=== PATIENT | male | born 1995 | race Caucasian/White ===

== ENCOUNTER 2019-10-12 12:03 | Day surgery (SDC) | payer BC ==
[~2019-10-12 12:03] MED LIST: Lactated Ringers 1,000 ML IV SCH
--- NOTE | 2019-10-12 13:38 | PCM.PREANE ---
Preanesthetic Assessment - Anesthesia/Transfusion/Family Hx Anesthesia History: Prior Anesthesia Without Reaction Family History of Anesthesia Reaction: No Transfusion History: No Prior Transfusion(s) Intubation History: Unknown - Review of Systems General: No Symptoms Pulmonary: No Symptoms Cardiovascular: No Symptoms Gastrointestinal: No Symptoms Neurological: No Symptoms Other: Reports: None - Physical Assessment NPO Status Date: 10/11/19 NPO Status Time: 23:00 Vital Signs: Last Vital Signs Temp 36.9 C 10/12/19 12:45 Pulse 62 10/12/19 12:45 Resp 16 10/12/19 12:45 BP 128/60 10/12/19 12:45 Pulse Ox 99 10/12/19 12:45 Height: 5 ft 8 in Weight: 91.172 kg ASA Class: 2 Mental Status: Alert & Oriented x3 Airway Class: Mallampati = 2 Dentition: Reports: Normal Dentition Thyro-Mental Finger Breadths: 3 Mouth Opening Finger Breadths: 3 ROM/Head Extension: Full Lungs: Clear to Auscultation, Normal Respiratory Effort Cardiovascular: Regular Rate, Regular Rhythm - Allergies Allergies/Adverse Reactions: Allergies Allergy/AdvReac Type Severity Reaction Status Date / Time amoxicillin Allergy Hives Verified 10/09/19 07:14 Penicillins Allergy Hives Verified 10/09/19 07:14 - Blood Blood Available: No - Anesthesia Plan Pre-Op Medication Ordered: None - Acknowledgements Anesthesia Type Planned: General Anesthesia Pt an Appropriate Candidate for the Planned Anesthesia: Yes Alternatives and Risks of Anesthesia Discussed w Pt/Guardian: Yes Pt/Guardian Understands and Agrees with Anesthesia Plan: Yes PreAnesthesia Questionnaire - Past Health History Medical/Surgical History: Denies Medical/Surgical History HEENT History: Reports: None Cardiovascular History: Reports: None Respiratory History: Reports: None Gastrointestinal History: Reports: None Genitourinary History: Reports: None Musculoskeletal History: Reports: Fracture Other Musculoskeletal History: intermittent back pain, scoliosis Neurological History: Reports: Other (See Below) (essential tremor - inderal ineffective) Psychiatric History: Reports: None Endocrine/Metabolic History: Reports: Obesity/BMI 30+ Hematologic History: Reports: None Immunologic History: Reports: None Oncologic (Cancer) History: Reports: None Dermatologic History: Reports: None - Past Surgical History Head Surgeries/Procedures: Reports: None HEENT Surgical History: Reports: None Cardiovascular Surgical History: Reports: None Respiratory Surgical History: Reports: None GI Surgical History: Reports: None Male Surgical History: Reports: None Endocrine Surgical History: Reports: None Neurological Surgical History: Reports: None Musculoskeletal Surgical History: Reports: ORIF Other Musculoskeletal Surgeries/Procedures:: ORIF fx left leg Oncologic Surgical History: Reports: None Dermatological Surgical History: Reports: None - SUBSTANCE USE Smoking Status *Q: Former Smoker Tobacco Use Within Last Twelve Months: Cigarettes Recreational Drug Use History: Yes Recreational Drug Type: Reports: Marijuana/Hashish Recreational Drug Last Use: 3 days ago - HOME MEDS Home Medications: Home Meds . [No Known Home Meds] 10/11/14 [History] - CURRENT (IN HOUSE) MEDS Current Meds: Current Medications Lactated Ringer's (Ringers, Lactated) 1,000 mls @ 125 mls/hr IV ASDIRECTED [facility] Last Admin: 10/12/19 13:16 Dose: 125 mls/hr Clindamycin Phosphate 900 mg/ (Premix) 50 mls @ 50 mls/hr IV ONETIME ONE Stop: 10/12/19 14:59 Discontinued Medications Clindamycin Phosphate 900 mg/ (Sodium Chloride) 56 mls @ 100 mls/hr IV ONETIME ONE Stop: 10/12/19 14:33
[2019-10-12] MEDS ORDERED: Ondansetron 4 MG/2 ML SDV ONE (13:55)
[2019-10-12] MEDS ORDERED: fentaNYL 250 MCG/5 ML SDV ONE (13:55)
[2019-10-12] MEDS ORDERED: Propofol 200 MG/20 ML SDV ONE (13:55)
[2019-10-12] MEDS ORDERED: Midazolam 1 MG/ML 2 ML SDV ONE (13:55)
[2019-10-12] MEDS ORDERED: Lidocaine 2% 5 ML SDV ONE (13:55)
[2019-10-12] MEDS ORDERED: Clindamycin Phosphate in D5W 900 MG in Premix Bag 1 BAG IV ONE ×2 (14:00)
[2019-10-12] MEDS ORDERED: Bupivacaine 25%/EPINEPHrine/PF 0 ML ONE (14:58)
[2019-10-12] MEDS ORDERED: Bupivacaine 0.5% 30 ML SDV ONE (14:58)
[2019-10-12] MEDS ORDERED: Glycopyrrolate 0.2 MG/ML SDV ONE ×2 (15:10→17:41)
--- NOTE | 2019-10-12 16:51 | PN ---
The patient is a 24-year-old male. PLANNED PROCEDURE: Open reduction with internal fixation of 2nd metatarsal, left foot. ALLERGIES: Potential allergy to penicillin and amoxicillin. PAST MEDICAL HISTORY: Significant for essential tremor for which propranolol was prescribed in June 2019, which he has stopped taking as he thought it was ineffective. He is not on any medications at this time. He did have an EKG showing normal sinus rhythm. He was cleared for surgery by Dr. Darrius Sheets, and he also had labs. LABORATORY DATA: As follows. White blood cells 6.78, red blood cell 5.04, hemoglobin 14.2, hematocrit 43.9, platelets 174. Glucose 69, calcium 9.4, BUN 16, creatinine 1.26, sodium 141, potassium 3.8, chloride 104, CO2 content 32. The patient fractured his 2nd metatarsal, left foot, a number of months ago. Has been walking on it ever since. Agrees to be nonweightbearing status post surgical correction. The patient understands due to the age of the fracture and the resulting malunion that this could complicate the fixation. He understands the risk of malunion, risk of nonunion, risk of prolonged healing, risk of postoperative infection. He has consented in writing and wishes to proceed with surgery today. Consent was signed and witnessed by nurse and placed in the patient's chart. No guarantees have been expressed or implied and all risks and benefits have been discussed with the patient. CAROLYN BARRON /[id number]
[2019-10-12] MEDS ORDERED: 50% Dextrose in Water 50 ML Syringe IVPUSH PRN (17:35)
[2019-10-12] MEDS ORDERED: Naloxone 0.4 MG/ML Syringe IVPUSH PRN (17:35)
[2019-10-12] MEDS ORDERED: Atropine 0.1 MG/ML 10 ML Syringe IVPUSH PRN ×2 (17:35)
[2019-10-12] MEDS ORDERED: EPINEPHrine 1:10,000 1 MG/10 ML Syringe IVPUSH PRN (17:35)
[2019-10-12] MEDS ORDERED: Albuterol 0.083% 2.5 MG/3 ML Neb Soln NEB PRN (17:35)
--- NOTE | 2019-10-12 18:09 | PCM.OPNOTE ---
- General Post-Op/Procedure Note Date of Surgery/Procedure: 10/12/19 Operative Procedure(s): orif 2nd metatarsal fracture left foot Findings: consistent with dx Pre Op Diagnosis: fracture second metatarsal left foot Post-Op Diagnosis: fracture second metatarsal left foot Anesthesia Technique: General LMA Primary Surgeon: Jose Resendez Anesthesia Provider: Moe Cook Pathology: none EBL in mLs: 10 Condition: Good Free Text/Narrative:: materials: 3-0 Vicryl 4-0 Vicryl 4-0 Stratafix Moustapha 2.7 mm x 22 mm locking screw Elwood 2.7 mm x 22 mm non-locking screw Elwood 2.7 mm x 14 mm locking screw Moustapha 2.7 mm x 18 mm locking screw Moustapha slim 5 hole Y plate 30 mm length injectables: 10 ml 0.5% marcaine plain tourniquet time: 119 minutes
[2019-10-12] MEDS ORDERED: Meperidine PF 25 MG/ML Syringe IVPUSH ONE (18:17)
[2019-10-12] MEDS ORDERED: Meperidine PF 25 MG/ML Syringe ONE (18:18)
[2019-10-12] MEDS: fentaNYL 100 MCG/2 ML SDV IVPUSH PRN ×2 (18:27→18:32)
--- NOTE | 2019-10-12 18:42 | PCM.POSTAN ---
POST ANESTHESIA ASSESSMENT - MENTAL STATUS Mental Status: Alert, Oriented - VITAL SIGNS Vital Signs: Last Vital Signs Temp 36.6 C 10/12/19 17:55 Pulse 96 10/12/19 18:35 Resp 17 10/12/19 18:35 BP 124/65 10/12/19 18:35 Pulse Ox 96 10/12/19 18:35 - RESPIRATORY Respiratory Status: Respiratory Rate WNL, Airway Patent, O2 Saturation Stable - CARDIOVASCULAR CV Status: Pulse Rate WNL, Blood Pressure Stable - GASTROINTESTINAL GI Status: No Symptoms - PAIN Pain Score: 2 - POST OP HYDRATION Hydration Status: Adequate & Stable - OBSERVATIONS Free Text/Narrative:: No anesthesia problems
--- NOTE | 2019-10-12 19:15 | PCM48HPAN ---
Post Anesthesia Note - EVALUATION WITHIN 48HRS OF ANESTHETIC Vital Signs in Normal Range: Yes Patient Participated in Evaluation: Yes Respiratory Function Stable: Yes Airway Patent: Yes Cardiovascular Function Stable: Yes Hydration Status Stable: Yes Pain Control Satisfactory: Yes Nausea and Vomiting Control Satisfactory: Yes Mental Status Recovered: Yes Vital Signs: Last Vital Signs Temp 36.6 C 10/12/19 17:55 Pulse 92 10/12/19 18:40 Resp 12 10/12/19 18:40 BP 129/76 10/12/19 18:40 Pulse Ox 94 L 10/12/19 18:40 - COMMENTS/OBSERVATIONS Free Text/Narrative:: No anesthesia problems
[2019-10-12 20:22] VITALS: BP 138/73; PULSE 74
--- NOTE | 2019-10-13 00:18 | OR ---
SURGEON: Jose Resendez DPM DATE OF PROCEDURE: 10/12/2019 PROCEDURE: Open reduction with internal fixation of 2nd metatarsal fracture, left foot. PREOPERATIVE DIAGNOSIS: Fracture of 2nd metatarsal, left foot. POSTOPERATIVE DIAGNOSOS: Fracture of 2nd metatarsal, left foot. ANESTHESIA: General, LMA. PATHOLOGY: None. ESTIMATED BLOOD LOSS: 10 mL. CONDITION: Good. The patient tolerated the procedure and anesthesia well with no complications noted and prompt hyperemic response to all digits of the left foot following deflation of the tourniquet. TOURNIQUET TIME: 119 minutes. MATERIALS: 3-0 Vicryl, 4-0 Vicryl, 4-0 Stratafix, Moustapha 2.7 mm x 22 mm locking screw, Boardman 2.7 mm x 22 mm nonlocking screw, Moustapha 2.7 mm x 14 mm locking screw, Boardman 2.7 mm x 18 mm nonlocking screw. There is also a Boardman 5-hole slim Y plate, 30 mm in length. INJECTABLES: 10 mL of 0.5% Marcaine plain. JUSTIFICATION FOR PROCEDURE: The patient was diagnosed with an old 2nd metatarsal fracture, which was the cause of his pain when he presented to my office stating that he had been tender for a long time. The fracture is of unknown duration. At that time at the initial presentation, the patient stated that he could not take time off work and would continue to weight bear on the fracture even knowing that it was there and would like to proceed to surgery in the latter part of September. Several months later, we are proceeding with surgery. Patient did revisit with me prior to surgery and had a CT scan confirming the nature of the 2nd metatarsal fracture, which is transverse and at the base of the 2nd metatarsal approximately 1 cm distal to the 2nd metatarsal intermediate cuneiform joint. The patient understands that there could be complications including nonunion due to the nature of this fracture and the amount of compromise to the bone that may have occurred over such a long period of time. He also understands the risks of prolonged healing and postoperative infection. All risks and benefits have been discussed with the patient. All the patient's questions have been answered and no guarantees have been expressed or implied. The patient has given written consent and wishes to proceed to surgery today. PROCEDURE IN DETAIL: The patient was brought to the operating room, placed on the operating table in the supine position, at which time an aseptic scrub and drape were performed about the patient's left lower extremity after administration of general anesthesia. The patient did have an above-ankle tourniquet affixed to his distal leg just above the malleoli on the left lower extremity. Time-out was performed and the site of surgery and procedure being performed was verified as well as the administration of 900 mg of clindamycin by Anesthesia. Preoperative x-rays were taken and saved documenting the preoperative state and incision planning was done with a marking pen. Incision was planned over the base of the 2nd metatarsal of the left foot. Esmarch bandage exsanguination was performed followed by inflation of the tourniquet to a pressure of 250 mmHg. Incision was performed using the planned incision line and deepened down to the level of subcutaneous tissue through that level, and then with retraction, the tendinous layer was dissected and retracted away from the base of the 2nd metatarsal. The 2nd metatarsal intermediate cuneiform joint was identified and bone callus was identified over the fracture line which was not visible due to the coverage with the hypertrophic bone callus. This was removed with bone rongeur and was further smoothed with feathering technique using TPS saw and the fracture site was identified and copious amounts of normal sterile saline used to flush out the area during the procedure. Initially, micro drilling was performed with a 0.035 inch K-wire and this was done to stimulate blood flow across the fracture site, which was noted to have avascular appearance. A lobster claw was used to achieve reduction across the fracture site and a 30 mm long, 5-hole slim Y Boardman plate was selected with the Y-shaped edge of the plate on the proximal aspect of the 2nd metatarsal base proximal to the fracture line and the distal 2 holes were located distally. The middle hole was just proximal to the fracture line and judged to be too close to be used. Drilling and measuring were done on the remaining 4 holes and the proximal lateral hole was fixated with a 2.7 x 22 mm Boardman locking screw. The medial hole was fixated with the same size screw, but a nonlocking screw to increase compression. BB-Agusto that had been used for fixation was removed and the distal holes were fixated with a 14 mm locking screw in the distal-most hole and just proximal to it, an 18 mm nonlocking screw. All screw sizes were 2.7 mm diameter. Excellent position and fixation were noted to have been achieved. Postoperative x-rays were taken and saved. The area was flushed again with normal sterile saline and layered soft tissue closure was done with 3-0 Vicryl suture for the deeper tissue, 4-0 Vicryl suture for subcutaneous layer, and 4-0 Stratafix suture for the superficial skin. Steri-Strips were applied. A 10 mL of 0.5% Marcaine plain was injected about the surgical site. Betadine-soaked Xeroform gauze was applied followed by fluff gauze, Kerlix roll, stockinette, cast padding and posterior splint secured with 2 Homar bandages. The tourniquet was deflated during closure at a time of 119 minutes. There was a prompt hyperemic response to all digits of the left foot upon deflation. The patient tolerated the procedure and the anesthesia well with no complications noted and was transported to the recovery room with vital signs stable. Patient is receiving written postoperative instructions as well as verbal and will be following up with me no later than Wednesday 4 days from now. CAROLYN / BEATRICE /[id number]
--- NOTE | 2019-10-13 07:20 | CR ---
Left foot: 5 fluoroscopic spot views were obtained of the left foot centered to the tarsometatarsal junction. Study shows placement of plate and screws across fracture involving the 2nd metatarsal base. Alignment on final films appears anatomic. Fluoroscopy time given as 19.3 seconds. Impression: 1. Procedural study as noted above. Diagnostic code #2 This report was dictated in Mountain Standard Time
== END 2019-10-12 20:50 | disposition home or self-care (01) ==
LOC: MW.SDS 12:03 → MW.MS 18:43 → MW.SDS 20:50
PROVIDERS: ATTEND Podiatrist Foot & Ankle Surgery
DX: S92.322A Displaced fracture of second metatarsal bone, left foot, initial encounter for closed fracture (principal); G25.0 Essential tremor; X58.XXXA Exposure to other specified factors, initial encounter
CPT/HCPCS: J2001; J2175; J2250; J2405; J2704; J3010; J3490; J7120

== ENCOUNTER 2020-05-26 14:31 | Emergency (ER) | payer BC ==
--- NOTE | 2020-05-26 14:42 | EDM.PDOC ---
ED HPI GENERAL MEDICAL PROBLEM - General Chief Complaint: General Stated Complaint: GENITALIA ISSUE Time Seen by Provider: 05/26/20 14:33 Source of Information: Reports: Patient History Limitations: Reports: No Limitations - History of Present Illness INITIAL COMMENTS - FREE TEXT/NARRATIVE: HISTORY AND PHYSICAL: History of present illness: Patient is a 25-year-old male who presents to the emergency room with complaints of swelling to his foreskin. He reports that he has not had any sexual encounters in over 3 weeks, reports using protection. He does admit to frequent masturbation, denies using any new creams/lotions. This morning he noticed swelling and discomfort of his foreskin, he is not circumcised. Denies any lesions, penile discharge, testicular pain or swelling. Does not voice any immediate concerns for STDs. Review of systems: As per history of present illness and below otherwise all systems reviewed and negative. Past medical history: As per history of present illness and as reviewed below otherwise noncontributory. Surgical history: As per history of present illness and as reviewed below otherwise noncontributory. Social history: See social history for further information Family history: As per history of present illness and as reviewed below otherwise noncontributory. Physical exam: General: Well-developed and well-nourished 25-year-old male. Alert and oriented. Nontoxic-appearing and in no acute distress. HEENT: Atraumatic, normocephalic, pupils equal and reactive bilaterally, negative for conjunctival pallor or scleral icterus, mucous membranes moist, TMs normal bilaterally, throat clear, neck supple, nontender, trachea midline. No drooling or trismus noted. No meningeal signs. No hot potato voice noted. Lungs: Clear to auscultation, breath sounds equal bilaterally, chest nontender. Heart: S1S2, regular rate and rhythm without overt murmur Abdomen: Soft, nondistended, nontender. Negative for masses or hepatosplenom egaly. Negative for costovertebral tenderness. Pelvis: Stable nontender. Genitourinary: This was done with consent and a superintendent local at the bedside. No lesions or penile drainage noted. No testicular pain, swelling or redness. He does have some mild redness and swelling on the dorsal aspect of the penis shaft. Skin: Intact, warm, dry. No lesions or rashes noted. Extremities: Atraumatic, moves all extremities per self without difficulty or deficits, negative for cords or calf pain. Neurovascular unremarkable. Neuro: Awake, alert, oriented. Cranial nerves II through XII unremarkable. Cerebellum unremarkable. Motor and sensory unremarkable throughout. Exam nonfocal. Notes: I did have Dr. Cox look at patient's skin, he is agreeable with plan of care. UA is normal. STD pending. Follow up, medication, and supportive care measures were reviewed and discussed. Voices understanding and is agreeable to plan of care. Denies any further questions or concerns at this time. Diagnostics: UA, gonorrhea/chlamydia Therapeutics: none Prescription: Hydrocortisone cream Impression: Balanoposthitis Plan: 1. Gently wash the area with mild soap and water twice daily, get under the foreskin. Make sure you dry the area thoroughly. 2. Apply the hydrocortisone topical twice daily over the next 5-7 days. 3. We did add a Gonorrhea/Chlamydia screening, this is a send out. We will call you if this requires additional medication. 4. Please follow up with primary care provider. If your symptoms should worsen, new symptoms develop or any of the signs and symptoms we discussed should arise please return to the emergency room or call 911 (if needed). Definitive disposition and diagnosis as appropriate pending reevaluation and review of above. Onset: Today - Related Data Allergies Allergy/AdvReac Type Severity Reaction Status Date / Time amoxicillin Allergy Hives Verified 05/26/20 14:41 Penicillins Allergy Hives Verified 05/26/20 14:41 Home Meds: Home Meds Hydrocortisone [Hydrocortisone 2.5% Oint] 1 dose TOP BID 7 Days #1 tube 05/26/20 [Rx] Past Medical History - Past Health History Medical/Surgical History: Denies Medical/Surgical History HEENT History: Reports: None Cardiovascular History: Reports: None Respiratory History: Reports: None Gastrointestinal History: Reports: None Genitourinary History: Reports: None Musculoskeletal History: Reports: Fracture Other Musculoskeletal History: intermittent back pain, scoliosis Neurological History: Reports: Other (See Below) (essential tremor - inderal ineffective) Psychiatric History: Reports: None Endocrine/Metabolic History: Reports: Obesity/BMI 30+ Hematologic History: Reports: None Immunologic History: Reports: None Oncologic (Cancer) History: Reports: None Dermatologic History: Reports: None - Past Surgical History Head Surgeries/Procedures: Reports: None HEENT Surgical History: Reports: None Cardiovascular Surgical History: Reports: None Respiratory Surgical History: Reports: None GI Surgical History: Reports: None Male Surgical History: Reports: None Endocrine Surgical History: Reports: None Neurological Surgical History: Reports: None Musculoskeletal Surgical History: Reports: ORIF Other Musculoskeletal Surgeries/Procedures:: ORIF fx left leg Oncologic Surgical History: Reports: None Dermatological Surgical History: Reports: None Social & Family History - Family History Family Medical History: Noncontributory - Caffeine Use Caffeine Use: Reports: Coffee ED ROS GENERAL - Review of Systems Review Of Systems: Comprehensive ROS is negative, except as noted in HPI. ED EXAM, GENERAL - Physical Exam Exam: See Below (See dictation) Course - Vital Signs Last Recorded V/S: Last Vital Signs Temp 97.6 F 05/26/20 14:41 Pulse 88 05/26/20 14:41 Resp 17 05/26/20 14:41 BP 136/77 05/26/20 14:41 Pulse Ox 97 05/26/20 14:41 - Orders/Labs/Meds Orders: Active Orders 24 hr Category Date Time Status CHLAMYDIA AND GONORRHEA BY TMA Stat Lab 05/26/20 13:08 Received Labs: Laboratory Tests 05/26/20 Range/Units 13:08 Urine Color YELLOW Urine Appearance CLEAR Urine pH 6.0 (5.0-8.0) Ur Specific Maynard 1.020 (1.001-1.035) Urine Protein NEGATIVE (NEGATIVE) mg/dL Urine Glucose (UA) NEGATIVE (NEGATIVE) mg/dL Urine Ketones NEGATIVE (NEGATIVE) mg/dL Urine Occult Blood NEGATIVE (NEGATIVE) Urine Nitrite NEGATIVE (NEGATIVE) Urine Bilirubin NEGATIVE (NEGATIVE) Urine Urobilinogen 1.0 (<2.0) EU/dL Ur Leukocyte Esterase NEGATIVE (NEGATIVE) Departure - Departure Time of Disposition: 16:15 Disposition: Home, Self-Care 01 Clinical Impression: Balanoposthitis - Discharge Information Prescriptions: Hydrocortisone [Hydrocortisone 2.5% Oint] 1 dose TOP BID 7 Days #1 tube Referrals: Josesito Sheets MD [Primary Care Provider] - Forms: ED Department Discharge Additional Instructions: The following information is given to patients seen in the emergency department who are being discharged to home. This information is to outline your options for follow-up care. We provide all patients seen in our emergency department with a follow-up referral. The need for follow-up, as well as the timing and circumstances, are variable depending upon the specifics of your emergency department visit. If you don't have a primary care physician on staff, we will provide you with a referral. We always advise you to contact your personal physician following an emergency department visit to inform them of the circumstance of the visit and for follow-up with them and/or the need for any referrals to a consulting specialist. The emergency department will also refer you to a specialist when appropriate. This referral assures that you have the opportunity for follow-up care with a specialist. All of these measure are taken in an effort to provide you with optimal care, which includes your follow-up. Under all circumstances we always encourage you to contact your private physician who remains a resource for coordinating your care. When calling for follow-up care, please make the office aware that this follow-up is from your recent emergency room visit. If for any reason you are refused follow-up, please contact the [facility] Emergency Department at and asked to speak to the emergency department charge nurse. [facility] Primary Care [address] [place] [address] [place] [address] Thank you for choosing the [facility] emergency department in [place] for your medical needs today. It was a pleasure caring for you. You were seen in the emergency department for penile swelling and irritation. 1. Gently wash the area with mild soap and water twice daily, get under the foreskin. Make sure you dry the area thoroughly. Avoid masturbation for several days while healing. 2. Apply the hydrocortisone topical twice daily over the next 5-7 days. 3. We did add a Gonorrhea/Chlamydia screening, this is a send out. We will call you if this requires additional medication. 4. Please follow up with primary care provider. If your symptoms should worsen, new symptoms develop or any of the signs and symptoms we discussed should arise please return to the emergency room or call 911 (if needed). Sepsis Event Note (ED) - Focused Exam Vital Signs: Vital Signs Temp Pulse Resp BP Pulse Ox 05/26/20 14:41 97.6 F 88 17 136/77 97 - My Orders Last 24 Hours: My Active Orders 05/26/20 13:08 CHLAMYDIA AND GONORRHEA BY TMA Stat - Assessment/Plan Last 24 Hours: My Active Orders 05/26/20 13:08 CHLAMYDIA AND GONORRHEA BY TMA Stat
[2020-05-26 14:45] VITALS: BP 136/77; PULSE 88
[2020-05-28 14:07] LABS: C.TRACHOMATIS BY TMA Negative (Negative); N.GONORRHOEAE BY TMA Negative (Negative)
== END 2020-05-26 16:21 | disposition home or self-care (01) ==
LOC: MW.ED 14:31
DX: N47.6 Balanoposthitis (principal); E66.9 Obesity, unspecified; Z68.28 Body mass index [BMI] 28.0-28.9, adult; Z88.1 Allergy status to other antibiotic agents; Z88.0 Allergy status to penicillin
CPT/HCPCS: 81003; 87491; 87591; 99282; 99283

== ENCOUNTER 2023-11-17 09:12 | Emergency (ER) | payer SELFPAY ==
[2023-11-17] MEDS ORDERED: Sodium Chloride 0.9% 1,000 ML IV ONE (10:38)
[2023-11-17] MEDS ORDERED: Ketorolac 30 MG/ML SDV IVPUSH ONE (10:38)
[2023-11-17] MEDS ORDERED: fentaNYL 50 MCG/ML SDV IVPUSH ONE (10:38)
[2023-11-17] MEDS ORDERED: metroNIDAZOLE/Normal Saline 500 MG in Premix Bag 1 BAG IV ONE (10:41)
[2023-11-17] MEDS ORDERED: Ciprofloxacin in D5W 400 MG in Premix Bag 1 BAG IV STA ×2 (10:41)
[2023-11-17 11:01] LABS: BASOPHILS ABSOLUTE AUTO 0.04 K/uL (0.00-0.20); BASOPHILS PERCENT AUTO 0.3 % (0.0-1.0); EOSINOPHILS ABSOLUTE AUTO 0.25 K/uL (0.00-0.45); EOSINOPHILS PERCENT AUTO 1.9 % (0.0-6.0); HEMATOCRIT 40.9 % (42.0-52.0); HEMOGLOBIN 14.3 g/dL (14.0-18.0); IMMATURE GRAN ABSOLUTE AUTO 0.04 K/uL (0.00-0.05); IMMATURE GRAN PERCENT AUTO 0.3 % (0.0-0.4); LYMPHOCYTES ABSOLUTE AUTO 1.56 K/uL (1.00-4.80); LYMPHOCYTES PERCENT AUTO 11.9 % (24.0-44.0); MEAN CORPUSCULAR HEMOGLOBIN 29.7 pg (28.0-32.0); MEAN PLATELET VOLUME 9.6 fL (9.4-12.4); MONOCYTES ABSOLUTE AUTO 0.92 K/uL (0.00-0.80); NEUTROPHILS ABSOLUTE AUTO 10.27 K/uL (1.80-7.70); NEUTROPHILS PERCENT AUTO 78.6 % (41.0-71.0); PLATELET COUNT,PLT 184 K/uL (150-400); RED BLOOD CELL COUNT 4.81 M/uL (4.52-5.90); WHITE BLOOD CELL COUNT,WBC 13.08 K/uL (3.9-11.3)
[2023-11-17 11:25] LABS: A/G RATIO 0.8 (0.9-1.6); ALBUMIN 3.5 g/dL (3.4-5.0); BILIRUBIN TOTAL 0.7 mg/dL (0.2-1.0); CALCIUM 8.7 mg/dL (8.5-10.1); CARBON DIOXIDE,CO2 24.3 mmol/L (21.0-32.0); CREATININE 1.1 mg/dL (0.8-1.3); POTASSIUM,K 3.6 mmol/L (3.5-5.1); PROTEIN TOTAL,TP 7.7 g/dL (6.4-8.2)
[2023-11-17 13:18] VITALS: BP 124/67; PULSE 76
== END 2023-11-17 13:04 | disposition home or self-care (01) ==
LOC: MW.ED 09:12
DX: K61.0 Anal abscess (principal); E66.9 Obesity, unspecified; Z88.0 Allergy status to penicillin; Z88.1 Allergy status to other antibiotic agents; Z68.29 Body mass index [BMI] 29.0-29.9, adult
CPT/HCPCS: 36415; 46050; 80053; 85025; 96365; 96367; 96375; 99283; J0744; J1836; J1885; J3010; J7030; 10060; 99284